=== PATIENT | male | born 1950 | race Caucasian/White ===

== ENCOUNTER 2017-03-10 09:48 | Outpatient (CLI) | payer OTHER, MEDICARE ==
[2017-03-11 10:58] LABS: FREE PSA 0.8 ng/mL
[2017-03-12 21:06] LABS: TESTOSTERONE, FREE (DIRECT) 10.9 pg/mL (6.6-18.1)
== END 2017-03-10 18:37 | disposition home or self-care (01) ==
LOC: SLB 09:48
DX: R97.20 Elevated prostate specific antigen [PSA] (principal); N40.1 Benign prostatic hyperplasia with lower urinary tract symptoms; N42.9 Disorder of prostate, unspecified
CPT/HCPCS: 36415; 84153; 84402; 84403

== ENCOUNTER 2017-10-27 06:54 | Outpatient (CLI) | payer MEDICARE, OTHER ==
[2017-10-27 07:43] LABS: BASOPHILS # (AUTO) 0.1 K/uL (0.0-0.2); BASOPHILS % (AUTO) 1.5 % (0.0-2.0); EOSINOPHILS # (AUTO) 0.6 K/uL (0.0-0.4); HEMOGLOBIN 14.4 g/dL (14.0-18.0); LYMPHOCYTES # (AUTO) 1.7 K/uL (1.0-5.5); LYMPHOCYTES % (AUTO) 24.5 % (20.5-51.5); MEAN CORPUSCULAR HEMOGLOBIN 31 pg (27-31); MEAN CORPUSCULAR HGB CONC 34 % (32-36); MEAN CORPUSCULAR VOLUME 92 fL (79.0-98.0); MONOCYTES # (AUTO) 0.5 K/uL (0.0-1.0); MONOCYTES % (AUTO) 7.2 % (1.7-9.3); NEUTROPHILS % (AUTO) 58.8 % (40.0-70.0); PLATELET COUNT (AUTO) 277 K/uL (130-430); RED BLOOD CELL COUNT(AUTO) 4.57 MIL/uL (4.2-6.2); RED CELL DISTRIBUTION WIDTH 11.7 % (9.0-15.0); WHITE BLOOD COUNT (AUTO) 6.9 K/uL (4.8-10.8)
[2017-10-27 08:45] LABS: ALBUMIN 3.9 g/dL (3.4-4.8); CREATININE 1.11 mg/dL (0.55-1.30); POTASSIUM 4.5 mmol/L (3.5-5.1); THYROID STIMULATING HORMONE 3.56 uIu/mL (0.34-4.82); TOTAL BILIRUBIN 0.5 mg/dL (0.0-1.0)
[2017-10-28 08:41] LABS: TESTOSTERONE, SERUM TOTAL 377 ng/dL (264-916)
== END 2017-10-27 20:39 | disposition home or self-care (01) ==
LOC: SLB 06:54
PROVIDERS: ATTEND Specialist
DX: R97.20 Elevated prostate specific antigen [PSA] (principal); R53.83 Other fatigue; R61 Generalized hyperhidrosis; R79.89 Other specified abnormal findings of blood chemistry
CPT/HCPCS: 36415; 80053; 80061; 83036; 84153; 84402; 84403; 84443-TC; 85025

== ENCOUNTER 2017-12-07 10:03 | Outpatient (CLI) | payer OTHER ==
[2017-12-07 10:56] LABS: CREATININE 1.01 mg/dL (0.55-1.30)
== END 2017-12-07 20:17 | disposition home or self-care (01) ==
LOC: SLB 10:03
DX: N40.1 Benign prostatic hyperplasia with lower urinary tract symptoms (principal); R97.20 Elevated prostate specific antigen [PSA]
CPT/HCPCS: 36415; 82565-TC; 84153; 84520-TC

== ENCOUNTER 2018-08-30 11:07 | Outpatient (CLI) | payer OTHER, MEDICARE ==
[2018-08-30 12:07] LABS: CREATININE 1.11 mg/dL (0.55-1.30); THYROID STIMULATING HORMONE 2.34 uIu/mL (0.34-4.82)
== END 2018-08-30 20:17 | disposition home or self-care (01) ==
LOC: SLB 11:07
PROVIDERS: ATTEND Specialist
DX: R53.83 Other fatigue (principal)
CPT/HCPCS: 36415; 82565-TC; 84443-TC; 84520-TC

== ENCOUNTER 2018-12-22 09:45 | Outpatient (CLI) | payer OTHER, MEDICARE ==
[2018-12-22 10:49] LABS: CALCIUM 9.4 mg/dL (8.4-11.0); CREATININE 1.13 mg/dL (0.55-1.30); POTASSIUM 5.5 mmol/L (3.5-5.1)
[2018-12-22 11:03] LABS: ALBUMIN 3.9 g/dL (3.4-4.8); THYROID STIMULATING HORMONE 2.27 uIu/mL (0.36-3.74); TOTAL BILIRUBIN 0.5 mg/dL (0.0-1.0)
== END 2018-12-22 21:10 | disposition home or self-care (01) ==
LOC: SLB 09:45
PROVIDERS: ATTEND Specialist
DX: Z12.5 Encounter for screening for malignant neoplasm of prostate (principal); Z79.899 Other long term (current) drug therapy
CPT/HCPCS: 36415; 80053; 84443; G0103

== ENCOUNTER 2019-01-04 07:37 | Outpatient (CLI) | payer OTHER, MEDICARE ==
[2019-01-04 08:50] LABS: BASOPHILS # (AUTO) 0.1 K/uL (0.0-0.2); BASOPHILS % (AUTO) 1.2 % (0.0-2.0); EOSINOPHILS # (AUTO) 0.4 K/uL (0.0-0.4); EOSINOPHILS % (AUTO) 5.5 % (0.0-4.0); HEMATOCRIT 45.8 % (36-54); HEMOGLOBIN 14.9 g/dL (14.0-18.0); LYMPHOCYTES # (AUTO) 1.6 K/uL (1.0-5.5); LYMPHOCYTES % (AUTO) 23.8 % (20.5-51.5); MEAN CORPUSCULAR HEMOGLOBIN 30 pg (27-31); MEAN CORPUSCULAR HGB CONC 33 % (32-36); MEAN CORPUSCULAR VOLUME 92 fL (79.0-98.0); MONOCYTES # (AUTO) 0.5 K/uL (0.0-1.0); MONOCYTES % (AUTO) 7.1 % (1.7-9.3); NEUTROPHILS # (AUTO) 4.1 K/uL (1.8-7.7); NEUTROPHILS % (AUTO) 62.4 % (40.0-70.0); PLATELET COUNT (AUTO) 232 K/uL (130-430); RED BLOOD CELL COUNT(AUTO) 4.97 MIL/uL (4.2-6.2); RED CELL DISTRIBUTION WIDTH 12.8 % (9.0-15.0); WHITE BLOOD COUNT (AUTO) 6.7 K/uL (4.8-10.8)
[2019-01-04 09:15] LABS: ALBUMIN 3.9 g/dL (3.4-4.8); CALCIUM 8.7 mg/dL (8.4-11.0); CREATININE 1.17 mg/dL (0.55-1.30); POTASSIUM 4.8 mmol/L (3.5-5.1); TOTAL BILIRUBIN 0.6 mg/dL (0.0-1.0)
== END 2019-01-04 20:37 | disposition home or self-care (01) ==
LOC: SLB 07:37
PROVIDERS: ATTEND Specialist
DX: E87.5 Hyperkalemia (principal); R79.89 Other specified abnormal findings of blood chemistry
CPT/HCPCS: 36415; 80053; 80061; 85025

== ENCOUNTER 2019-08-09 07:53 | Outpatient (CLI) | payer OTHER, MEDICARE ==
[2019-08-09 08:15] LABS: BASOPHILS # (AUTO) 0.1 K/uL (0.0-0.2); BASOPHILS % (AUTO) 1.1 % (0.0-2.0); EOSINOPHILS # (AUTO) 0.2 K/uL (0.0-0.4); EOSINOPHILS % (AUTO) 3.2 % (0.0-4.0); HEMATOCRIT 43.5 % (36-54); HEMOGLOBIN 14.9 g/dL (14.0-18.0); LYMPHOCYTES # (AUTO) 0.9 K/uL (1.0-5.5); MEAN CORPUSCULAR HEMOGLOBIN 32 pg (27-31); MEAN CORPUSCULAR HGB CONC 34 % (32-36); MEAN CORPUSCULAR VOLUME 94 fL (79.0-98.0); MONOCYTES # (AUTO) 0.4 K/uL (0.0-1.0); MONOCYTES % (AUTO) 7.3 % (1.7-9.3); NEUTROPHILS # (AUTO) 3.4 K/uL (1.8-7.7); NEUTROPHILS % (AUTO) 69.4 % (40.0-70.0); PLATELET COUNT (AUTO) 234 K/uL (130-430); RED BLOOD CELL COUNT(AUTO) 4.63 MIL/uL (4.2-6.2); RED CELL DISTRIBUTION WIDTH 13.7 % (9.0-15.0); WHITE BLOOD COUNT (AUTO) 4.9 K/uL (4.8-10.8)
[2019-08-09 08:42] LABS: ALANINE AMINOTRANSFERASE 34 U/L (12-78); ALBUMIN 3.8 g/dL (3.4-4.8); ANION GAP 6 (5-15); ASPARTATE AMINOTRANSFERASE 18 U/L (10-37); CALCIUM 9.3 mg/dL (8.4-11.0); CHLORIDE 104 mmol/L (98-107); CREATININE 1.13 mg/dL (0.55-1.30); GLUCOSE 102 mg/dL (70-99); SODIUM SERUM 143 mmol/L (136-145); THYROID STIMULATING HORMONE 3.04 uIu/mL (0.36-3.74); TOTAL BILIRUBIN 0.5 mg/dL (0.0-1.0); UREA NITROGEN, BLOOD 15 mg/dL (8-21)
[2019-08-09 08:44] LABS: GFR AFRICAN AMERICAN 83 mL/min (>90)
[2019-08-09 09:16] LABS: C-REACTIVE PROTEIN QUANT < 0.2 mg/dL (0-0.5)
[2019-08-09 09:17] LABS: CHOLESTEROL 138 mg/dL (<200); HDL CHOLESTEROL 62 mg/dL (>45); LDL CHOLESTEROL 58 mg/dL (<100); TRIGLYCERIDES 74 mg/dL (30-150)
[2019-08-09 09:19] LABS: ERYTHROCYTE SEDIMENTATION RATE 5 MM/HR (0-15)
[2019-08-10 11:29] LABS: BILIRUBIN,URINE NEGATIVE (NEGATIVE); BLOOD, URINE NEGATIVE (NEGATIVE); CLARITY/URINE CLEAR (CLEAR); COLOR,URINE YELLOW (YELLOW); GLUCOSE,URINE NEGATIVE (NEGATIVE); KETONES,URINE NEGATIVE (NEGATIVE); LEUKOCYTE ESTERASE ,URINE NEGATIVE (NEGATIVE); NITRITE, URINE NEGATIVE (NEGATIVE); PROTEIN URINE NEGATIVE (NEGATIVE); UROBILINOGEN,URINE 0.2 (0.2-1.0)
[2019-08-10 13:44] LABS: PROSTATE SPECIFIC AG 4.9 ng/mL (0.0-4.0)
== END 2019-08-09 21:07 | disposition home or self-care (01) ==
LOC: SLB 07:53
PROVIDERS: ATTEND Specialist
DX: N40.1 Benign prostatic hyperplasia with lower urinary tract symptoms (principal); L29.9 Pruritus, unspecified; R97.20 Elevated prostate specific antigen [PSA]; R79.89 Other specified abnormal findings of blood chemistry
CPT/HCPCS: 36415; 80053; 80061; 81003; 83036; 84153; 84403; 84443-TC; 85025; 85651-TC; 86140

== ENCOUNTER 2019-08-14 13:28 | Outpatient (CLI) | payer OTHER, MEDICARE | END 2019-08-14 20:08 | disposition home or self-care (01) | LOC: SRD 13:28 | PROVIDERS: ATTEND Emergency Medicine | DX: M47.812 Spondylosis without myelopathy or radiculopathy, cervical region (principal) | CPT/HCPCS: 72050-TC ==

== ENCOUNTER 2019-11-24 08:53 | Outpatient (CLI) | payer OTHER, MEDICARE | END 2019-11-24 21:30 | disposition home or self-care (01) | LOC: SLB 08:53 | PROVIDERS: ATTEND Specialist | DX: E03.9 Hypothyroidism, unspecified (principal) | CPT/HCPCS: 36415; 84443-TC ==

== ENCOUNTER 2020-04-01 06:54 | Outpatient (CLI) | payer OTHER, MEDICARE ==
[2020-04-01 07:45] LABS: EOSINOPHILS # (AUTO) 0.3 K/uL (0.0-0.4); EOSINOPHILS % (AUTO) 6.3 % (0.0-4.0); HEMATOCRIT 43.5 % (36-54); HEMOGLOBIN 14.3 g/dL (14.0-18.0); LYMPHOCYTES # (AUTO) 1.3 K/uL (1.0-5.5); LYMPHOCYTES % (AUTO) 24.8 % (20.5-51.5); MEAN CORPUSCULAR HEMOGLOBIN 31 pg (27-31); MEAN CORPUSCULAR HGB CONC 33 % (32-36); MEAN CORPUSCULAR VOLUME 93 fL (79.0-98.0); MONOCYTES # (AUTO) 0.4 K/uL (0.0-1.0); NEUTROPHILS # (AUTO) 3.1 K/uL (1.8-7.7); NEUTROPHILS % (AUTO) 60.9 % (40.0-70.0); PLATELET COUNT (AUTO) 211 K/uL (130-430); RED BLOOD CELL COUNT(AUTO) 4.66 MIL/uL (4.2-6.2); RED CELL DISTRIBUTION WIDTH 13.1 % (9.0-15.0); WHITE BLOOD COUNT (AUTO) 5.1 K/uL (4.8-10.8)
[2020-04-01 08:50] LABS: ERYTHROCYTE SEDIMENTATION RATE 2 MM/HR (0-15)
[2020-04-01 08:57] LABS: ALANINE AMINOTRANSFERASE 30 U/L (12-78); ALBUMIN 3.7 g/dL (3.4-4.8); ASPARTATE AMINOTRANSFERASE 13 U/L (10-37); CALCIUM 8.7 mg/dL (8.4-11.0); CHLORIDE 105 mmol/L (98-107); CHOLESTEROL 139 mg/dL (<200); CREATININE 1.25 mg/dL (0.55-1.30); GLUCOSE 104 mg/dL (70-99); HDL CHOLESTEROL 56 mg/dL (>45); LDL CHOLESTEROL 66 mg/dL (<100); POTASSIUM 4.5 mmol/L (3.5-5.1); SODIUM SERUM 136 mmol/L (136-145); THYROID STIMULATING HORMONE 3.05 uIu/mL (0.34-4.82); TOTAL BILIRUBIN 0.5 mg/dL (0.0-1.0); TRIGLYCERIDES 96 mg/dL (30-150); UREA NITROGEN, BLOOD 17 mg/dL (8-21)
[2020-04-01 08:58] LABS: ANION GAP < 3 (5-15); GFR AFRICAN AMERICAN 74 mL/min (>90)
[2020-04-02 10:31] LABS: HEMOGLOBIN A1C 6.1 % (4.8-5.6)
[2020-04-02 10:32] LABS: PROSTATE SPECIFIC AG 8.9 ng/mL (0.0-4.0)
== END 2020-04-01 19:36 | disposition home or self-care (01) ==
LOC: SLB 06:54
PROVIDERS: ATTEND Specialist
DX: N40.1 Benign prostatic hyperplasia with lower urinary tract symptoms (principal); I10 Essential (primary) hypertension; E03.9 Hypothyroidism, unspecified; R97.20 Elevated prostate specific antigen [PSA]; Z79.899 Other long term (current) drug therapy
CPT/HCPCS: 36415; 80053; 80061; 83036; 84153; 84443-TC; 85025; 85651-TC

== ENCOUNTER 2020-04-03 10:19 | Outpatient (CLI) | payer OTHER, MEDICARE ==
[2020-04-04 05:07] LABS: % FREE PSA 12.4 % (.); FREE PSA 1.03 ng/mL
[2020-04-04 07:50] LABS: PROSTATE SPECIFIC AG TOTAL 8.3 ng/mL (0.0-4.0)
== END 2020-04-03 22:15 | disposition home or self-care (01) ==
LOC: SLB 10:19
PROVIDERS: ATTEND Specialist
DX: N40.0 Benign prostatic hyperplasia without lower urinary tract symptoms (principal)
CPT/HCPCS: 36415; 84153

== ENCOUNTER 2020-05-09 09:52 | Outpatient (CLI) | payer OTHER, MEDICARE | END 2020-05-09 22:21 | disposition home or self-care (01) | LOC: SLB 09:52 | PROVIDERS: ATTEND Specialist | DX: N40.0 Benign prostatic hyperplasia without lower urinary tract symptoms (principal); R39.198 Other difficulties with micturition | CPT/HCPCS: 36415; 84153 ==

== ENCOUNTER 2020-11-13 13:37 | Emergency (ER) | payer OTHER, MEDICARE, SELFPAY ==
[~2020-11-13] VITALS: Ht 180.3 cm; Wt 97.5 kg
[2020-11-13 13:37] VITALS: BP_SYST 126
[2020-11-13 16:15] VITALS: BP_SYST 121
== END 2020-11-13 16:15 | disposition home or self-care (01) ==
LOC: SED 13:37
DX: U07.1 COVID-19 (principal)
CPT/HCPCS: 99283

== ENCOUNTER 2020-11-22 09:28 | Outpatient (CLI) | payer OTHER, MEDICARE | END 2020-11-22 19:52 | disposition home or self-care (01) | LOC: SLB 09:28 | PROVIDERS: ATTEND Specialist | DX: N40.1 Benign prostatic hyperplasia with lower urinary tract symptoms (principal); N42.9 Disorder of prostate, unspecified; R97.20 Elevated prostate specific antigen [PSA] | CPT/HCPCS: 36415; 84153 ==

== ENCOUNTER 2020-11-29 10:10 | Outpatient (CLI) | payer OTHER, MEDICARE, SELFPAY ==
[2020-11-29 10:31] LABS: BASOPHILS % (AUTO) 0.7 % (0.0-2.0); EOSINOPHILS # (AUTO) 0.2 K/uL (0.0-0.4); EOSINOPHILS % (AUTO) 3.7 % (0.0-4.0); HEMATOCRIT 43.5 % (36-54); HEMOGLOBIN 14.7 g/dL (14.0-18.0); LYMPHOCYTES # (AUTO) 1.5 K/uL (1.0-5.5); LYMPHOCYTES % (AUTO) 21.7 % (20.5-51.5); MEAN CORPUSCULAR HEMOGLOBIN 31 pg (27-31); MEAN CORPUSCULAR HGB CONC 34 % (32-36); MEAN CORPUSCULAR VOLUME 93 fL (79.0-98.0); MONOCYTES # (AUTO) 0.5 K/uL (0.0-1.0); MONOCYTES % (AUTO) 7.2 % (1.7-9.3); NEUTROPHILS # (AUTO) 4.5 K/uL (1.8-7.7); NEUTROPHILS % (AUTO) 66.7 % (40.0-70.0); PLATELET COUNT (AUTO) 221 K/uL (130-430); RED BLOOD CELL COUNT(AUTO) 4.68 MIL/uL (4.2-6.2); RED CELL DISTRIBUTION WIDTH 12.8 % (9.0-15.0); WHITE BLOOD COUNT (AUTO) 6.7 K/uL (4.8-10.8)
[2020-11-29 11:20] LABS: BILIRUBIN,DIRECT 0.2 mg/dL (0.0-0.3); CALCIUM 8.8 mg/dL (8.4-11.0); CREATININE 1.09 mg/dL (0.55-1.30); POTASSIUM 4.8 mmol/L (3.5-5.1); THYROID STIMULATING HORMONE 2.45 uIu/mL (0.36-3.74); TOTAL BILIRUBIN 0.6 mg/dL (0.0-1.0)
== END 2020-11-29 19:03 | disposition home or self-care (01) ==
LOC: SLB 10:10
PROVIDERS: ATTEND Specialist
DX: R06.02 Shortness of breath (principal); I10 Essential (primary) hypertension; Z86.19 Personal history of other infectious and parasitic diseases
CPT/HCPCS: 36415; 80053; 82248-TC; 83880; 84443-TC; 85025

== ENCOUNTER → 2021-06-30 | Outpatient (CLI) | payer OTHER, MEDICARE ==
[2021-06-30 08:56] LABS: BASOPHILS # (AUTO) 0.1 K/uL (0.0-0.2); EOSINOPHILS # (AUTO) 0.4 K/uL (0.0-0.4); EOSINOPHILS % (AUTO) 6.9 % (0.0-4.0); HEMATOCRIT 40.2 % (36-54); HEMOGLOBIN 13.7 g/dL (14.0-18.0); LYMPHOCYTES # (AUTO) 1.2 K/uL (1.0-5.5); LYMPHOCYTES % (AUTO) 20.6 % (20.5-51.5); MEAN CORPUSCULAR HEMOGLOBIN 32 pg (27-31); MEAN CORPUSCULAR HGB CONC 34 % (32-36); MEAN CORPUSCULAR VOLUME 93 fL (79.0-98.0); MONOCYTES # (AUTO) 0.4 K/uL (0.0-1.0); MONOCYTES % (AUTO) 6.8 % (1.7-9.3); NEUTROPHILS # (AUTO) 3.6 K/uL (1.8-7.7); NEUTROPHILS % (AUTO) 64.7 % (40.0-70.0); PLATELET COUNT (AUTO) 209 K/uL (130-430); RED BLOOD CELL COUNT(AUTO) 4.32 MIL/uL (4.2-6.2); RED CELL DISTRIBUTION WIDTH 12.8 % (9.0-15.0); WHITE BLOOD COUNT (AUTO) 5.6 K/uL (4.8-10.8)
[2021-06-30 09:32] LABS: THYROID STIMULATING HORMONE 3.68 uIu/mL (0.34-4.82)
[2021-06-30 10:27] LABS: ERYTHROCYTE SEDIMENTATION RATE 3 MM/HR (0-15)
[2021-06-30 10:28] LABS: C-REACTIVE PROTEIN QUANT 0.2 mg/dL (0-0.5)
[2021-06-30 13:32] LABS: ALBUMIN 3.7 g/dL (3.4-4.8); CALCIUM 8.9 mg/dL (8.4-11.0); CREATININE 1.1 mg/dL (0.55-1.30); POTASSIUM 4.6 mmol/L (3.5-5.1); TOTAL BILIRUBIN 0.6 mg/dL (0.0-1.0)
[2021-06-30 14:00] LABS: TOTAL IRON BIND. CAPACITY 295 ug/dL (250-450)
== END | disposition home or self-care (01) ==
LOC: SLB 07:25
PROVIDERS: ATTEND Specialist
DX: N40.0 Benign prostatic hyperplasia without lower urinary tract symptoms (principal)
CPT/HCPCS: 36415; 80053; 80061; 82607; 83036; 83540; 83550; 84153; 84443; 85025; 85651-TC; 86140

== ENCOUNTER 2021-10-27 07:35 | Outpatient (CLI) | payer OTHER, MEDICARE ==
[2021-10-27 08:26] LABS: HEMOGLOBIN 13.8 g/dL (14.0-18.0); LYMPHOCYTES # (AUTO) 1.2 K/uL (1.0-5.5); LYMPHOCYTES % (AUTO) 21.7 % (20.5-51.5); MEAN CORPUSCULAR HEMOGLOBIN 30 pg (27-31); MEAN CORPUSCULAR HGB CONC 33 % (32-36); MEAN CORPUSCULAR VOLUME 93 fL (79.0-98.0); MONOCYTES # (AUTO) 0.5 K/uL (0.0-1.0); MONOCYTES % (AUTO) 9.3 % (1.7-9.3); NEUTROPHILS # (AUTO) 3.7 K/uL (1.8-7.7); PLATELET COUNT (AUTO) 216 K/uL (130-430); RED BLOOD CELL COUNT(AUTO) 4.53 MIL/uL (4.2-6.2); RED CELL DISTRIBUTION WIDTH 12.8 % (9.0-15.0); WHITE BLOOD COUNT (AUTO) 5.4 K/uL (4.8-10.8)
[2021-10-27 08:39] LABS: ALANINE AMINOTRANSFERASE 30 U/L (12-78); ALBUMIN 3.7 g/dL (3.4-4.8); ANION GAP 4 (5-15); ASPARTATE AMINOTRANSFERASE 18 U/L (10-37); CALCIUM 8.1 mg/dL (8.4-11.0); CHLORIDE 104 mmol/L (98-107); CHOLESTEROL 132 mg/dL (<200); GLUCOSE 104 mg/dL (70-99); HDL CHOLESTEROL 71 mg/dL (>45); LDL CHOLESTEROL 44 mg/dL (<100); POTASSIUM 5.1 mmol/L (3.5-5.1); SODIUM SERUM 139 mmol/L (136-145); TOTAL BILIRUBIN 0.3 mg/dL (0.0-1.0); TRIGLYCERIDES 57 mg/dL (30-150); UREA NITROGEN, BLOOD 16 mg/dL (8-21)
[2021-10-27 08:53] LABS: GFR AFRICAN AMERICAN 85 mL/min (>90)
[2021-10-27 08:54] LABS: C-REACTIVE PROTEIN QUANT < 0.2 mg/dL (0-0.5)
[2021-10-27 10:37] LABS: ERYTHROCYTE SEDIMENTATION RATE 2 MM/HR (0-15)
[2021-10-28 07:07] LABS: PROSTATE SPECIFIC AG 3.2 ng/mL (0.0-4.0)
== END 2021-10-27 20:26 | disposition home or self-care (01) ==
LOC: SLB 07:35
PROVIDERS: ATTEND Specialist
DX: R53.83 Other fatigue (principal); N40.0 Benign prostatic hyperplasia without lower urinary tract symptoms; Z79.899 Other long term (current) drug therapy
CPT/HCPCS: 36415; 80053; 80061; 83036; 84153; 84443; 85025; 85651-TC; 86140

== ENCOUNTER 2022-04-02 08:13 | Outpatient (CLI) | payer OTHER, MEDICARE ==
[2022-04-02 09:05] LABS: BASOPHILS % (AUTO) 0.1 % (0.0-2.0); HEMATOCRIT 42.6 % (36-54); HEMOGLOBIN 14.2 g/dL (14.0-18.0); LYMPHOCYTES # (AUTO) 0.9 K/uL (1.0-5.5); LYMPHOCYTES % (AUTO) 23.6 % (20.5-51.5); MEAN CORPUSCULAR HEMOGLOBIN 30 pg (27-31); MEAN CORPUSCULAR HGB CONC 33 % (32-36); MEAN CORPUSCULAR VOLUME 91 fL (79.0-98.0); MONOCYTES # (AUTO) 0.4 K/uL (0.0-1.0); NEUTROPHILS # (AUTO) 2.6 K/uL (1.8-7.7); NEUTROPHILS % (AUTO) 66.3 % (40.0-70.0); PLATELET COUNT (AUTO) 213 K/uL (130-430); RED CELL DISTRIBUTION WIDTH 13.2 % (9.0-15.0)
[2022-04-02 10:08] LABS: SODIUM SERUM 140 mmol/L (136-145)
[2022-04-02 10:09] LABS: ALANINE AMINOTRANSFERASE 23 U/L (12-78); ALBUMIN 3.5 g/dL (3.4-4.8); ANION GAP 5 (5-15); ASPARTATE AMINOTRANSFERASE 16 U/L (10-37); CALCIUM 8.3 mg/dL (8.4-11.0); CHLORIDE 103 mmol/L (98-107); CREATININE 1.16 mg/dL (0.55-1.30); GLUCOSE 105 mg/dL (70-99); POTASSIUM 4.7 mmol/L (3.5-5.1); THYROID STIMULATING HORMONE 2.71 uIu/mL (0.36-3.74); TOTAL BILIRUBIN 0.5 mg/dL (0.0-1.0); UREA NITROGEN, BLOOD 14 mg/dL (8-21)
[2022-04-02 10:16] LABS: PROTHROMBIN TIME 10.4 SECS (9.5-12.5)
[2022-04-02 10:41] LABS: CHOLESTEROL 136 mg/dL (<200); HDL CHOLESTEROL 73 mg/dL (>45); LDL CHOLESTEROL 51 mg/dL (<100); TRIGLYCERIDES 61 mg/dL (30-150)
[2022-04-02 10:43] LABS: C-REACTIVE PROTEIN QUANT < 0.2 mg/dL (0-0.5)
[2022-04-02 11:11] LABS: ERYTHROCYTE SEDIMENTATION RATE 4 MM/HR (0-15)
[2022-04-03 11:10] LABS: HEMOGLOBIN A1C 6.2 % (4.8-5.6)
[2022-04-03 17:07] LABS: FREE PSA 0.32 ng/mL; PROSTATE SPECIFIC AG TOTAL 2.9 ng/mL (0.0-4.0)
== END 2022-04-02 19:48 | disposition home or self-care (01) ==
LOC: SRD 08:13 → SLB 19:48
PROVIDERS: ATTEND Specialist
DX: R53.83 Other fatigue (principal); M54.9 Dorsalgia, unspecified; R39.15 Urgency of urination; E07.9 Disorder of thyroid, unspecified; R79.1 Abnormal coagulation profile; Z79.899 Other long term (current) drug therapy
CPT/HCPCS: 36415; 80053; 80061; 83036; 84153; 84443; 85025; 85610-TC; 85651-TC; 85730-TC; 86140

== ENCOUNTER 2022-04-24 09:21 | Outpatient (CLI) | payer OTHER, MEDICARE ==
[2022-04-25 05:07] LABS: FERRITIN 76 ng/mL (30-400)
== END 2022-04-24 20:53 | disposition home or self-care (01) ==
LOC: SLB 09:21
PROVIDERS: ATTEND Specialist
DX: R53.83 Other fatigue (principal); R79.9 Abnormal finding of blood chemistry, unspecified
CPT/HCPCS: 36415; 82607; 82728

== ENCOUNTER 2022-08-24 08:08 | Outpatient (CLI) | payer OTHER, MEDICARE ==
[2022-08-24 09:01] LABS: BASOPHILS % (AUTO) 0.1 % (0.0-2.0); HEMATOCRIT 41.2 % (36-54); HEMOGLOBIN 14.1 g/dL (14.0-18.0); LYMPHOCYTES # (AUTO) 1.3 K/uL (1.0-5.5); LYMPHOCYTES % (AUTO) 27.3 % (20.5-51.5); MEAN CORPUSCULAR HEMOGLOBIN 31 pg (27-31); MEAN CORPUSCULAR HGB CONC 34 % (32-36); MEAN CORPUSCULAR VOLUME 91 fL (79.0-98.0); MONOCYTES # (AUTO) 0.4 K/uL (0.0-1.0); MONOCYTES % (AUTO) 8.3 % (1.7-9.3); NEUTROPHILS % (AUTO) 64.3 % (40.0-70.0); PLATELET COUNT (AUTO) 214 K/uL (130-430); RED BLOOD CELL COUNT(AUTO) 4.51 MIL/uL (4.2-6.2); RED CELL DISTRIBUTION WIDTH 13.5 % (9.0-15.0); WHITE BLOOD COUNT (AUTO) 4.6 K/uL (4.8-10.8)
[2022-08-24 09:23] LABS: ALANINE AMINOTRANSFERASE 24 U/L (12-78); ALBUMIN 3.6 g/dL (3.4-4.8); ANION GAP 5 (5-15); ASPARTATE AMINOTRANSFERASE 14 U/L (10-37); CALCIUM 8.8 mg/dL (8.4-11.0); CHLORIDE 102 mmol/L (98-107); CREATININE 1.21 mg/dL (0.55-1.30); GLUCOSE 106 mg/dL (70-99); POTASSIUM 4.6 mmol/L (3.5-5.1); THYROID STIMULATING HORMONE 1.98 uIu/mL (0.36-3.74); TOTAL BILIRUBIN 0.5 mg/dL (0.0-1.0); UREA NITROGEN, BLOOD 14 mg/dL (8-21)
[2022-08-24 09:24] LABS: C-REACTIVE PROTEIN QUANT < 0.2 mg/dL (0-0.5)
[2022-08-24 11:56] LABS: CHOLESTEROL 151 mg/dL (<200); HDL CHOLESTEROL 77 mg/dL (>45); LDL CHOLESTEROL 60 mg/dL (<100); TRIGLYCERIDES 128 mg/dL (30-150)
[2022-08-24 12:55] LABS: ERYTHROCYTE SEDIMENTATION RATE 5 MM/HR (0-15)
[2022-08-25 08:07] LABS: PROSTATE SPECIFIC AG 2.8 ng/mL (0.0-4.0)
== END 2022-08-24 17:02 | disposition home or self-care (01) ==
LOC: SLB 08:08
PROVIDERS: ATTEND Specialist
DX: R53.83 Other fatigue (principal); N40.0 Benign prostatic hyperplasia without lower urinary tract symptoms; Z79.899 Other long term (current) drug therapy
CPT/HCPCS: 36415; 80053; 80061; 83036; 84153; 84443; 85025; 85651-TC; 86140

== ENCOUNTER 2022-08-31 10:33 | Outpatient (CLI) | payer OTHER, MEDICARE | END 2022-08-31 18:56 | disposition home or self-care (01) | LOC: SLB 10:33 | PROVIDERS: ATTEND Specialist | DX: R53.83 Other fatigue (principal); Z79.899 Other long term (current) drug therapy | CPT/HCPCS: 36415; 82306; 82607; 82728 ==